=== PATIENT | male | born 1940 | race Caucasian/White ===

== ENCOUNTER 2024-10-06 01:49 | Emergency (ER) | payer MEDICARE ==
[~2024-10-06] VITALS: Ht 170.2 cm; Wt 65.0 kg
[2024-10-06 01:00] VITALS: PULSE 72; RESP 26; O2SAT 100
[2024-10-06 01:52] VITALS: O2SAT 100
[2024-10-06] MEDS ORDERED: LORAZEPAM 2MG/ML INJ IV ONE (02:15)
[2024-10-06] MEDS: MORPHINE SULFATE 4 MG/ML INJ (FOR IV/IM USE) IV ONE (02:18)
[2024-10-06] MEDS: LORAZEPAM 2MG/ML UD SYRINGE IV NR (02:30)
[2024-10-06 02:46] VITALS: BP 84/38; PULSE 76; RESP 8
[2024-10-06] MEDS: MORPHINE SULFATE 250 MG in DEXT 5% WATER 250 ML IV PRN (02:46)
== END 2024-10-06 04:23 ==
LOC: ER 01:49
DX: I46.9 Cardiac arrest, cause unspecified (principal); J96.00 Acute respiratory failure, unspecified whether with hypoxia or hypercapnia; Z88.0 Allergy status to penicillin
CPT/HCPCS: 99285; 92950; 96365; 71045; 96375; 93005; 96376; J2060; J2270; 94002